=== PATIENT | male | born 1955 | race African-American/Black ===

== ENCOUNTER 2019-10-12 17:15 | Observation (INO) ==
[2019-10-12] MEDS ORDERED: ALBUTEROL/IPRATROPIUM 3 ML NEB RESP TX STA (18:50)
[2019-10-12] MEDS ORDERED: ONDANSETRON 4 MG/2 ML VIAL IV STA (18:50)
[2019-10-12] MEDS ORDERED: CALCIUM GLUCONATE 1,000 MG in SODIUM CHLORIDE 0.9% 100 ML IV ONE (19:03)
[2019-10-12 19:14] LABS: Basophils % 0.4 % (0.0-0.8); Eosinophils # 0.1 10*3/uL (0.0-0.87); Eosinophils % 1.6 % (0.00-10.9); Hematocrit 32.4 VOL% (42.0-52.0); Hemoglobin 9.7 GM/DL (14.0-18.0); Immature Granulocytes % 0.1 %; Immature Granulocytes Absolute 0.01 #; Mean Corpuscular HGB Conc 29.9 GM/DL (32-36); Mean Corpuscular Volume 105.2 FL (87-102); Mean Platelet Volume 10.2 FL (9.6-12.0); Monocytes % 12.5 % (1.7-12.7); Neutrophils % 56.4 % (38.7-73.9); Platelet Count 149 T/CUMM (130-400); Red Blood Count 3.08 MC/CUMM (3.8-5.5); Red Cell Distribution Width 14.8 % (9.3-17.3); White Blood Count 6.9 T/CUMM (4-12)
[2019-10-12] MEDS ORDERED: SODIUM BICARBONATE 50 MEQ/50 ML VIAL IV STA (19:17)
[2019-10-12] MEDS ORDERED: DEXTROSE 50% 25 GM/50 ML VIAL IV STA (19:18)
[2019-10-12] MEDS ORDERED: ONDANSETRON 4 MG/2 ML VIAL IV PRN (19:19)
[2019-10-12] MEDS ORDERED: GLUCAGON 1 MG VIAL IM PRN (19:19)
[2019-10-12] MEDS ORDERED: INSULIN REGULAR 100 UNIT/ML IV STA (19:19)
[2019-10-12 19:25] LABS: PT Patient Result 10.9 SECS (9.6-12.2)
[2019-10-12] MEDS ORDERED: DEXTROSE 50% 25 GM/50 ML SYRINGE IV ONE (19:28)
[2019-10-12 19:40] LABS: Alanine Aminotransferase 53 U/L (16-61); Albumin 3.6 G/DL (3.4-5.0); Alkaline Phosphatase 149 U/L (45-117); Aspartate Amino Transferase 31 U/L (0-37); Bilirubin,Total < 0.39 MG/DL (0.2-1.0); Blood Urea Nitrogen 113 MG/DL (7-18); Calcium 7.8 MG/DL (8.5-10.1); Estimated Glom Filtration Rate 18 ML/MIN; Total Protein 6.7 G/DL (6.4-8.3)
[2019-10-12 19:47] LABS: Glucose 38 MG/DL (74-106)
[2019-10-12] MEDS: FUROSEMIDE 40 MG/4 ML VIAL IV SCH (20:02)
[2019-10-12 20:49] LABS: Uric Acid 4.2 MG/DL (3.5-7.2)
[2019-10-12] MEDS: INSULIN LISPRO 100 UNIT/ML SUBCUT SCH ×2 (21:00→21:54)
[2019-10-12 21:41] LABS: Apearance,Urine CLEAR (Clear); Bilirubin,Urine Negative (Negative); Blood, Urine Small mg/dL (Negative); Glucose,Urine (UA) Negative (Negative); Hyaline Casts,Urine 12 /LPF (0-3); Ketones,Urine Negative (Negative); Mucus,Urine Occasional /LPF (Occasional); Nitrite,Urine Negative (Negative); Protein,Urine Negative; RBC,Urine 1 /HPF (0-4); Urine Color Straw (Yellow); Urine Specific Gravity 1.006 (1.001-1.035); Urine Urobilinogen < 2.0 EU/DL (0.2-1.0)
[2019-10-12 21:43] LABS: Protein/Creatinine Ratio,Urine 0.4 RATIO
[2019-10-12] MEDS: ENOXAPARIN 30 MG/0.3 ML SYRINGE SUBCUT SCH (21:54)
[2019-10-12] MEDS: SODIUM BICARBONATE 650 MG TABLET PO SCH (21:55)
[2019-10-12] MEDS: ASPIRIN EC 81 MG TABLET PO SCH (21:56)
[2019-10-13 02:21] LABS: Basophils % 0.5 % (0.0-0.8); Eosinophils # 0.1 10*3/uL (0.0-0.87); Eosinophils % 1.9 % (0.00-10.9); Hematocrit 28.3 VOL% (42.0-52.0); Hemoglobin 8.7 GM/DL (14.0-18.0); Immature Granulocytes % 0.2 %; Immature Granulocytes Absolute 0.01 #; Lymphocytes # 1.6 10*3/uL (1.4-4.0); Lymphocytes % 25.1 % (21.2-54.2); Mean Corpuscular HGB Conc 30.7 GM/DL (32-36); Mean Corpuscular Volume 103.7 FL (87-102); Monocytes % 12.7 % (1.7-12.7); Neutrophils % 59.6 % (38.7-73.9); Platelet Count 141 T/CUMM (130-400); Red Blood Count 2.73 MC/CUMM (3.8-5.5); Red Cell Distribution Width 14.8 % (9.3-17.3); White Blood Count 6.2 T/CUMM (4-12)
[2019-10-13 03:02] LABS: Risk Ratio 2.13; VLDL CHOLESTEROL 24.8 MG/DL
[2019-10-13] MEDS: FUROSEMIDE 40 MG/4 ML VIAL IV SCH ×3 (03:10→21:42)
[2019-10-13 04:46] LABS: Hepatitis B Core IgM Quant 0.05 Index; Hepatitis B Surface Ag Quant < 0.10 Index; Hepatitis B Surface Ag Result Negative (Negative); Hepatitis C Virus Ab Quant 0.16 Index; Hepatitis C Virus Ab Result Negative (Negative)
[2019-10-13] MEDS: INSULIN LISPRO 100 UNIT/ML SUBCUT SCH ×4 (08:07→21:42)
[2019-10-13] MEDS: SODIUM BICARBONATE 650 MG TABLET PO SCH ×3 (08:39→21:42)
[2019-10-13] MEDS: PANTOPRAZOLE 40 MG TABLET PO SCH (08:39)
[2019-10-13] MEDS: ASPIRIN EC 81 MG TABLET PO SCH (08:39)
[2019-10-13] MEDS: ISOSORBIDE MONONITRATE 30 MG TABLET PO SCH (12:38)
[2019-10-13] MEDS: amLODIPine 10 MG TABLET PO SCH (12:38)
[2019-10-13 16:46] LABS: Calcium 7.3 MG/DL (8.5-10.1); Osmolality,Calculated 325.8 MOS/KG (273-304)
[2019-10-13] MEDS: ENOXAPARIN 30 MG/0.3 ML SYRINGE SUBCUT SCH (21:42)
[2019-10-13] MEDS: ATORVASTATIN 80 MG TABLET PO SCH (21:42)
[2019-10-13] MEDS: MONTELUKAST 10 MG TABLET PO SCH (21:42)
[2019-10-13] MEDS: LATANOPROST 0.005% OPH SOLN 2.5 ML BOTTLE BOTH EYES SCH (21:53)
[2019-10-14] MEDS: FUROSEMIDE 40 MG/4 ML VIAL IV SCH (04:28)
[2019-10-14 06:20] LABS: Basophils % 0.6 % (0.0-0.8); Eosinophils # 0.2 10*3/uL (0.0-0.87); Eosinophils % 2.9 % (0.00-10.9); Hematocrit 28.8 VOL% (42.0-52.0); Immature Granulocytes % 0.4 %; Immature Granulocytes Absolute 0.03 #; Lymphocytes # 1.6 10*3/uL (1.4-4.0); Lymphocytes % 23.5 % (21.2-54.2); Mean Corpuscular HGB Conc 31.3 GM/DL (32-36); Mean Corpuscular Volume 101.1 FL (87-102); Mean Platelet Volume 10.8 FL (9.6-12.0); Monocytes % 12.1 % (1.7-12.7); Neutrophils % 60.5 % (38.7-73.9); Platelet Count 161 T/CUMM (130-400); Red Blood Count 2.85 MC/CUMM (3.8-5.5); Red Cell Distribution Width 14.2 % (9.3-17.3)
[2019-10-14 06:44] LABS: Albumin 3.2 G/DL (3.4-5.0); Calcium 7.3 MG/DL (8.5-10.1); Calcium 7.4 MG/DL (8.5-10.1); Osmolality,Calculated 318.8 MOS/KG (273-304); Osmolality,Calculated 319.8 MOS/KG (273-304)
[2019-10-14] MEDS ORDERED: LISINOPRIL 20 MG TABLET PO SCH (09:00)
[2019-10-14] MEDS: INSULIN LISPRO 100 UNIT/ML SUBCUT SCH ×4 (10:21→22:02)
[2019-10-14] MEDS: PANTOPRAZOLE 40 MG TABLET PO SCH (10:22)
[2019-10-14] MEDS: SODIUM BICARBONATE 650 MG TABLET PO SCH ×3 (10:22→22:02)
[2019-10-14] MEDS: ISOSORBIDE MONONITRATE 30 MG TABLET PO SCH (10:22)
[2019-10-14] MEDS: ASPIRIN EC 81 MG TABLET PO SCH ×2 (10:22→10:23)
[2019-10-14] MEDS: METOPROLOL SUCCINATE XL 50 MG TABLET PO SCH (10:22)
[2019-10-14] MEDS: ALLOPURINOL 100 MG TABLET PO SCH (10:22)
[2019-10-14] MEDS: amLODIPine 10 MG TABLET PO SCH (10:22)
[2019-10-14] MEDS: PARICALCITOL 1 MCG PO SCH (10:27)
[2019-10-14 12:34] LABS: HIV Antigen/Antibody Result Nonreactive (Nonreactive); Hepatitis B Surface Ag Quant < 0.10 Index; Hepatitis B Surface Ag Result Negative (Negative); Hepatitis C Virus Ab Quant 0.15 Index; Hepatitis C Virus Ab Result Negative (Negative)
[2019-10-14 13:54] LABS: HIV Antigen/Antibody Result Nonreactive (Nonreactive)
[2019-10-14 15:09] LABS: Osmolality, Serum 337 mOsm/kg (275 - 295)
[2019-10-14] MEDS ORDERED: FUROSEMIDE 40 MG/4 ML VIAL IV SCH (18:00)
[2019-10-14] MEDS: LATANOPROST 0.005% OPH SOLN 2.5 ML BOTTLE BOTH EYES SCH (22:00)
[2019-10-14] MEDS: ENOXAPARIN 30 MG/0.3 ML SYRINGE SUBCUT SCH (22:01)
[2019-10-14] MEDS: MONTELUKAST 10 MG TABLET PO SCH (22:02)
[2019-10-14] MEDS: ATORVASTATIN 80 MG TABLET PO SCH (22:02)
[2019-10-15 05:03] LABS: Basophils % 0.4 % (0.0-0.8); Eosinophils # 0.2 10*3/uL (0.0-0.87); Eosinophils % 3.1 % (0.00-10.9); Hematocrit 28.3 VOL% (42.0-52.0); Immature Granulocytes % 0.3 %; Immature Granulocytes Absolute 0.02 #; Lymphocytes % 29.4 % (21.2-54.2); Mean Corpuscular HGB Conc 31.8 GM/DL (32-36); Mean Corpuscular Volume 100.7 FL (87-102); Mean Platelet Volume 10.8 FL (9.6-12.0); Monocytes % 11.9 % (1.7-12.7); Neutrophils % 54.9 % (38.7-73.9); Platelet Count 141 T/CUMM (130-400); Red Blood Count 2.81 MC/CUMM (3.8-5.5); Red Cell Distribution Width 13.6 % (9.3-17.3); White Blood Count 6.8 T/CUMM (4-12)
[2019-10-15 05:33] LABS: Albumin 3.3 G/DL (3.4-5.0); Calcium 7.3 MG/DL (8.5-10.1); Osmolality,Calculated 326.8 MOS/KG (273-304)
[2019-10-15] MEDS: INSULIN LISPRO 100 UNIT/ML SUBCUT SCH ×4 (10:30→22:09)
[2019-10-15] MEDS: PANTOPRAZOLE 40 MG TABLET PO SCH (10:31)
[2019-10-15] MEDS: FUROSEMIDE 80 MG TABLET PO SCH ×2 (10:31→10:47)
[2019-10-15] MEDS: ASPIRIN EC 81 MG TABLET PO SCH (10:32)
[2019-10-15] MEDS: SODIUM BICARBONATE 650 MG TABLET PO SCH ×3 (10:32→22:09)
[2019-10-15] MEDS: ALLOPURINOL 100 MG TABLET PO SCH (10:32)
[2019-10-15] MEDS: amLODIPine 10 MG TABLET PO SCH ×2 (10:32→10:40)
[2019-10-15] MEDS: METOPROLOL SUCCINATE XL 50 MG TABLET PO SCH ×2 (10:33→10:47)
[2019-10-15] MEDS: PARICALCITOL 1 MCG PO SCH (10:36)
[2019-10-15] MEDS: ISOSORBIDE MONONITRATE 30 MG TABLET PO SCH ×2 (10:36→10:47)
[2019-10-15] MEDS: ATORVASTATIN 80 MG TABLET PO SCH (22:08)
[2019-10-15] MEDS: hydrALAZINE 25 MG TABLET PO SCH (22:09)
[2019-10-15] MEDS: ENOXAPARIN 30 MG/0.3 ML SYRINGE SUBCUT SCH (22:09)
[2019-10-15] MEDS: MONTELUKAST 10 MG TABLET PO SCH (22:09)
[2019-10-15] MEDS: LATANOPROST 0.005% OPH SOLN 2.5 ML BOTTLE BOTH EYES SCH (22:14)
[2019-10-16 05:38] LABS: Albumin 3.3 G/DL (3.4-5.0); Calcium 7.8 MG/DL (8.5-10.1); Osmolality,Calculated 328.4 MOS/KG (273-304)
[2019-10-16] MEDS: INSULIN LISPRO 100 UNIT/ML SUBCUT SCH ×4 (08:52→22:20)
[2019-10-16] MEDS: SODIUM BICARBONATE 650 MG TABLET PO SCH ×3 (10:31→22:19)
[2019-10-16] MEDS: hydrALAZINE 25 MG TABLET PO SCH ×3 (10:31→22:20)
[2019-10-16] MEDS: ASPIRIN EC 81 MG TABLET PO SCH (10:31)
[2019-10-16] MEDS: FUROSEMIDE 80 MG TABLET PO SCH (10:32)
[2019-10-16] MEDS: ALLOPURINOL 100 MG TABLET PO SCH (10:32)
[2019-10-16] MEDS: PANTOPRAZOLE 40 MG TABLET PO SCH (10:32)
[2019-10-16] MEDS: amLODIPine 10 MG TABLET PO SCH (10:37)
[2019-10-16] MEDS: ISOSORBIDE MONONITRATE 30 MG TABLET PO SCH (10:37)
[2019-10-16] MEDS: PARICALCITOL 1 MCG PO SCH (10:38)
[2019-10-16] MEDS: METOPROLOL SUCCINATE XL 50 MG TABLET PO SCH (14:32)
[2019-10-16] MEDS: ENOXAPARIN 30 MG/0.3 ML SYRINGE SUBCUT SCH (22:20)
[2019-10-16] MEDS: MONTELUKAST 10 MG TABLET PO SCH (22:20)
[2019-10-16] MEDS: ATORVASTATIN 80 MG TABLET PO SCH (22:20)
[2019-10-16] MEDS: LATANOPROST 0.005% OPH SOLN 2.5 ML BOTTLE BOTH EYES SCH (22:21)
[2019-10-17] MEDS: INSULIN LISPRO 100 UNIT/ML SUBCUT SCH ×2 (08:04→12:48)
[2019-10-17 09:00] VITALS: BP 159/80
[2019-10-17] MEDS: PANTOPRAZOLE 40 MG TABLET PO SCH (09:35)
[2019-10-17] MEDS: PARICALCITOL 1 MCG PO SCH (09:36)
[2019-10-17] MEDS: METOPROLOL SUCCINATE XL 50 MG TABLET PO SCH (09:36)
[2019-10-17] MEDS: SODIUM BICARBONATE 650 MG TABLET PO SCH (09:36)
[2019-10-17] MEDS: hydrALAZINE 25 MG TABLET PO SCH (09:36)
[2019-10-17] MEDS: ALLOPURINOL 100 MG TABLET PO SCH (09:36)
[2019-10-17] MEDS: ISOSORBIDE MONONITRATE 30 MG TABLET PO SCH (09:36)
[2019-10-17] MEDS: amLODIPine 10 MG TABLET PO SCH (09:36)
[2019-10-17] MEDS: FUROSEMIDE 80 MG TABLET PO SCH (09:36)
[2019-10-17] MEDS: ASPIRIN EC 81 MG TABLET PO SCH (09:36)
== END 2019-10-17 12:30 | disposition home or self-care (01) ==
LOC: EDBD → EDUNIT# → N.ED 17:15 → N.EDINP 18:59 → INTOOBSV 18:59 → SUATTDRO 18:59 → N.CC 19:22 → N.5E 10-13 14:46
PROVIDERS: ADMIT Internal Medicine; ATTEND Internal Medicine Geriatric Medicine

== ENCOUNTER 2021-08-31 14:14 | Inpatient (IN) ==
[2021-08-31] MEDS ORDERED: MORPHINE 2 MG/1 ML SYRINGE IV PRN (19:24)
[2021-08-31] MEDS ORDERED: DEXTROSE 50% 25 GM/50 ML VIAL IV PRN (19:24)
[2021-08-31] MEDS ORDERED: ACETAMINOPHEN 325 MG TABLET PO PRN (19:24)
[2021-08-31] MEDS ORDERED: ONDANSETRON 4 MG/2 ML VIAL IV PRN (19:24)
[2021-08-31] MEDS ORDERED: GLUCAGON 1 MG VIAL IM PRN (19:24)
[2021-08-31] MEDS ORDERED: LACTATED RINGERS 1,000 ML IV SCH (19:30)
[2021-08-31 20:11] LABS: Basophils % 0.4 % (0.0-0.8); Eosinophils # 0.2 10*3/uL (0.0-0.87); Eosinophils % 2.3 % (0.00-10.9); Hematocrit 29.5 VOL% (42.0-52.0); Hemoglobin 9.3 GM/DL (14.0-18.0); Immature Granulocytes % 0.4 %; Immature Granulocytes Absolute 0.03 #; Lymphocytes # 1.4 10*3/uL (1.4-4.0); Lymphocytes % 20.6 % (21.2-54.2); Mean Corpuscular HGB Conc 31.5 GM/DL (32-36); Mean Corpuscular Volume 104.6 FL (87-102); Mean Platelet Volume 9.5 FL (9.6-12.0); Monocytes % 8.7 % (1.7-12.7); Neutrophils % 67.6 % (38.7-73.9); Platelet Count 178 T/CUMM (130-400); Red Blood Count 2.82 MC/CUMM (3.8-5.5); Red Cell Distribution Width 13.8 % (9.3-17.3)
[2021-08-31 20:38] LABS: Alanine Aminotransferase 42 U/L (16-61); Albumin 3.3 G/DL (3.4-5.0); Alkaline Phosphatase 242 U/L (45-117); Aspartate Amino Transferase 22 U/L (0-37); Bilirubin,Total < 0.39 MG/DL (0.20-1.00); Blood Urea Nitrogen 79 MG/DL (7-18); Calcium 7.5 MG/DL (8.5-10.1); Carbon Dioxide 16 MMOL/L (21-32); Estimated Glom Filtration Rate 19 ML/MIN; Glucose 298 MG/DL (74-106); Potassium 4.7 MMOL/L (3.5-5.1); Sodium 143 MMOL/L (136-145); Total Protein 6.8 G/DL (6.4-8.2)
[2021-08-31] MEDS: hydrALAZINE 25 MG TABLET PO SCH (21:04)
[2021-08-31] MEDS: METOPROLOL TARTRATE 25 MG TABLET PO SCH (21:04)
[2021-08-31] MEDS: ATORVASTATIN 80 MG TABLET PO SCH (21:04)
[2021-08-31] MEDS: ENOXAPARIN 120 MG/0.8 ML SYRINGE SUBCUT SCH (21:08)
[2021-08-31] MEDS: INSULIN REGULAR 100 UNIT/ML SUBCUT SCH (21:27)
[2021-09-01] MEDS: ALBUTEROL/IPRATROPIUM 3 ML NEB RESP TX SCH ×4 (00:10→19:43)
[2021-09-01 05:09] LABS: Basophils % 0.6 % (0.0-0.8); Eosinophils # 0.2 10*3/uL (0.0-0.87); Eosinophils % 3.2 % (0.00-10.9); Hematocrit 28.9 VOL% (42.0-52.0); Hemoglobin 8.9 GM/DL (14.0-18.0); Immature Granulocytes % 0.2 %; Immature Granulocytes Absolute 0.01 #; Lymphocytes % 18.8 % (21.2-54.2); Mean Corpuscular HGB Conc 30.8 GM/DL (32-36); Mean Corpuscular Volume 104.3 FL (87-102); Mean Platelet Volume 10.2 FL (9.6-12.0); Monocytes % 10.8 % (1.7-12.7); Neutrophils % 66.4 % (38.7-73.9); Platelet Count 171 T/CUMM (130-400); Red Blood Count 2.77 MC/CUMM (3.8-5.5); Red Cell Distribution Width 13.7 % (9.3-17.3); White Blood Count 5.4 T/CUMM (4-12)
[2021-09-01 05:56] LABS: Calcium 7.5 MG/DL (8.5-10.1); Osmolality,Calculated 311.7 MOS/KG (273-304); Potassium 4.5 MMOL/L (3.5-5.1); Risk Ratio 2.77; Thyroid Stimulating Hormone 0.888 uIU/ml (0.358-3.74); VLDL Cholesterol 39.4 MG/DL
[2021-09-01] MEDS: INSULIN REGULAR 100 UNIT/ML SUBCUT SCH ×4 (08:41→21:59)
[2021-09-01] MEDS: amLODIPine 10 MG TABLET PO SCH (09:44)
[2021-09-01] MEDS: METOPROLOL TARTRATE 25 MG TABLET PO SCH ×2 (09:44→20:49)
[2021-09-01] MEDS: hydrALAZINE 25 MG TABLET PO SCH ×3 (09:44→20:49)
[2021-09-01] MEDS: PANTOPRAZOLE 40 MG TABLET PO SCH (09:44)
[2021-09-01] MEDS: ASPIRIN EC 81 MG TABLET PO SCH (09:44)
[2021-09-01] MEDS: ATORVASTATIN 80 MG TABLET PO SCH (20:49)
[2021-09-01] MEDS: LATANOPROST 0.005% OPH SOLN 2.5 ML BOTTLE RIGHT EYE SCH (20:49)
[2021-09-01] MEDS: ENOXAPARIN 120 MG/0.8 ML SYRINGE SUBCUT SCH (20:49)
[2021-09-01] MEDS: MONTELUKAST 10 MG TABLET PO SCH (20:49)
[2021-09-01] MEDS: PARICALCITOL 1 MCG PO SCH (20:49)
[2021-09-01] MEDS: INSULIN GLARGINE 100 UNIT/ML SUBCUT SCH (20:50)
[2021-09-02] MEDS: ALBUTEROL/IPRATROPIUM 3 ML NEB RESP TX SCH ×4 (00:55→20:42)
[2021-09-02] MEDS: METOPROLOL TARTRATE 25 MG TABLET PO SCH ×2 (09:09→20:20)
[2021-09-02] MEDS: allopurinoL 100 MG TABLET PO SCH (09:09)
[2021-09-02] MEDS: PANTOPRAZOLE 40 MG TABLET PO SCH (09:09)
[2021-09-02] MEDS: hydrALAZINE 25 MG TABLET PO SCH ×3 (09:09→20:19)
[2021-09-02] MEDS: amLODIPine 10 MG TABLET PO SCH (09:10)
[2021-09-02] MEDS: ASPIRIN EC 81 MG TABLET PO SCH (09:10)
[2021-09-02] MEDS: INSULIN GLARGINE 100 UNIT/ML SUBCUT SCH ×2 (09:10→20:20)
[2021-09-02] MEDS: INSULIN REGULAR 100 UNIT/ML SUBCUT SCH ×4 (09:10→20:53)
[2021-09-02] MEDS: ATORVASTATIN 80 MG TABLET PO SCH (20:19)
[2021-09-02] MEDS: MONTELUKAST 10 MG TABLET PO SCH (20:20)
[2021-09-02] MEDS: LATANOPROST 0.005% OPH SOLN 2.5 ML BOTTLE RIGHT EYE SCH (20:20)
[2021-09-02] MEDS: PARICALCITOL 1 MCG PO SCH (20:52)
[2021-09-02] MEDS ORDERED: ENOXAPARIN 30 MG/0.3 ML SYRINGE SUBCUT SCH (21:00)
[2021-09-03] MEDS: ALBUTEROL/IPRATROPIUM 3 ML NEB RESP TX SCH ×3 (00:03→15:07)
[2021-09-03 05:58] LABS: Basophils % 0.7 % (0.0-0.8); Eosinophils # 0.3 10*3/uL (0.0-0.87); Eosinophils % 4.8 % (0.00-10.9); Hematocrit 32.2 VOL% (42.0-52.0); Hemoglobin 9.7 GM/DL (14.0-18.0); Immature Granulocytes % 0.5 %; Immature Granulocytes Absolute 0.03 #; Lymphocytes % 33.7 % (21.2-54.2); Mean Corpuscular HGB Conc 30.1 GM/DL (32-36); Mean Corpuscular Volume 104.9 FL (87-102); Mean Platelet Volume 10.4 FL (9.6-12.0); Monocytes % 9.1 % (1.7-12.7); NRBC # 0.02 10*3/uL; Neutrophils % 51.2 % (38.7-73.9); Platelet Count 202 T/CUMM (130-400); Red Blood Count 3.07 MC/CUMM (3.8-5.5); Red Cell Distribution Width 14.2 % (9.3-17.3); White Blood Count 6.1 T/CUMM (4-12)
[2021-09-03 06:16] LABS: Calcium 8.1 MG/DL (8.5-10.1); Osmolality,Calculated 309.8 MOS/KG (273-304); Potassium 4.8 MMOL/L (3.5-5.1)
[2021-09-03] MEDS: INSULIN REGULAR 100 UNIT/ML SUBCUT SCH ×2 (07:00→12:16)
[2021-09-03] MEDS ORDERED: REGADENOSON 0.4 MG/5 ML SYRINGE IV ONE (08:27)
[2021-09-03] MEDS: amLODIPine 10 MG TABLET PO SCH (10:11)
[2021-09-03] MEDS: INSULIN GLARGINE 100 UNIT/ML SUBCUT SCH (10:11)
[2021-09-03] MEDS: allopurinoL 100 MG TABLET PO SCH (10:12)
[2021-09-03] MEDS: METOPROLOL TARTRATE 25 MG TABLET PO SCH (10:12)
[2021-09-03] MEDS: ASPIRIN EC 81 MG TABLET PO SCH (10:12)
[2021-09-03] MEDS: PANTOPRAZOLE 40 MG TABLET PO SCH (10:12)
[2021-09-03] MEDS: hydrALAZINE 25 MG TABLET PO SCH ×2 (10:12→14:54)
[2021-09-03 14:55] VITALS: BP 167/83
== END 2021-09-03 16:11 | disposition home or self-care (01) | DRG 392 ==
LOC: N.TELEN
PROVIDERS: ADMIT Internal Medicine; ATTEND Internal Medicine